=== PATIENT | female | born 1965 | race Caucasian/White ===

== ENCOUNTER 2019-09-14 15:57 | Emergency (ER) | payer SELFPAY ==
[2019-09-14] MEDS ORDERED: Sodium Chloride 0.9% 2.5 ML Syringe FLUSH PRN (16:09)
[2019-09-14] MEDS ORDERED: Sodium Chloride 0.9% 10 ML Syringe FLUSH PRN (16:09)
--- NOTE | 2019-09-14 16:17 | EDM.PDOC ---
ED HPI GENERAL MEDICAL PROBLEM - General Chief Complaint: Respiratory Problem Stated Complaint: CHEST HURTING Time Seen by Provider: 09/14/19 16:16 Source of Information: Reports: Patient History Limitations: Reports: No Limitations - History of Present Illness INITIAL COMMENTS - FREE TEXT/NARRATIVE: HISTORY AND PHYSICAL: History of present illness: Patient is a 54-year-old female presents to the ED with complaint of chest pain. She states she has been trying to quit smoking so she switched to vaping a few weeks ago. She states she developed left sided chest pain 2 weeks ago that resolved. In the last 3 days she has been having pain in her chest bilaterally but worse on the left side. She states it hurts when taking a deep breath and when moving a certain way or turning in bed. She denies fevers, chills, cough, shortness of breath, diaphoresis, nausea, vomiting, abdominal pain, diarrhea. She denies significant past medical history. She denies any pain at this time and only if she takes a deep breath. Review of systems: As per history of present illness and below otherwise all systems reviewed and negative. Past medical history: As per history of present illness and as reviewed below otherwise noncontributory. Surgical history: As per history of present illness and as reviewed below otherwise noncontributory. Social history: No reported history of drug or alcohol abuse. Family history: As per history of present illness and as reviewed below otherwise noncontributory. Physical exam: General: Patient sitting comfortably in no acute distress and nontoxic appearing. Speaking full sentences without breathlessness. HEENT: Atraumatic, normocephalic, pupils reactive, negative for conjunctival pallor or scleral icterus, mucous membranes moist, throat clear, neck supple, nontender, trachea midline. No meningeal signs. Lungs: Clear to auscultation, breath sounds equal bilaterally, tender to palpation along the sternum and sternocostal joints bilaterally. Heart: S1S2, regular, negative for clicks, rubs, or overt murmur. Abdomen: Soft, nondistended, nontender. Negative for masses or hepatosplenomegaly. Negative for costovertebral tenderness. No rigidity, rebound , guarding. Pelvis: Stable nontender. Genitourinary: Deferred. Rectal: Deferred. Extremities: Atraumatic, negative for cords or calf pain. Neurovascular unremarkable. Neuro: Awake, alert, oriented. Cranial nerves II through XII unremarkable. Cerebellum unremarkable. Motor and sensory unremarkable throughout. Exam nonfocal. Notes: Patient was offered admission for chest pain r/o ACS. She declines at this time and understands my concerns and risks. Diagnostics: CBC, CMP, Troponin, EKG, CXR Therapeutics: none Prescriptions: Impression: Atypical chest pain Plan: Take NSAIDs as instructed Follow up with primary care provider Return to ED as needed as discussed Definitive disposition and diagnosis as appropriate pending reevaluation and review of above. Chest Pain Score (Numeric/FACES): 6 - Related Data Allergies Allergy/AdvReac Type Severity Reaction Status Date / Time No Known Allergies Allergy Verified 09/14/19 16:18 Home Meds: Home Meds . [No Known Home Meds] 09/14/19 [History] ED ROS GENERAL - Review of Systems Review Of Systems: ROS reveals no pertinent complaints other than HPI. ED EXAM, GENERAL - Physical Exam Exam: See Below (see dictation) Course - Vital Signs Last Recorded V/S: Last Vital Signs Temp 97.0 F 09/14/19 16:15 Pulse 69 09/14/19 16:15 Resp 16 09/14/19 16:15 BP 136/73 09/14/19 16:15 Pulse Ox 98 09/14/19 16:15 - Orders/Labs/Meds Orders: Active Orders 24 hr Category Date Time Status Cardiac Monitoring [RC] . DIRECTED Care 09/14/19 16:09 Active EKG Documentation Completion [RC] STAT Care 09/14/19 16:09 Active Sodium Chloride 0.9% [Saline Flush] Med 09/14/19 16:09 Active 10 ml FLUSH ASDIRECTED PRN Sodium Chloride 0.9% [Saline Flush] Med 09/14/19 16:09 Active 2.5 ml FLUSH ASDIRECTED PRN Saline Lock Insert [OM.PC] Stat Oth 09/14/19 16:09 Ordered Medication Orders Sodium Chloride (Saline Flush) 10 ml FLUSH ASDIRECTED PRN PRN Reason: Keep Vein Open Sodium Chloride (Saline Flush) 2.5 ml FLUSH ASDIRECTED PRN PRN Reason: Keep Vein Open Labs: Laboratory Tests 09/14/19 09/14/19 09/14/19 Range/Units 16:32 16:32 16:32 WBC 7.40 (4.0-11.0) K/uL RBC 4.14 L (4.30-5.90) M/uL Hgb 12.2 (12.0-16.0) g/dL Hct 37.4 (36.0-46.0) % MCV 90.3 (80.0-98.0) fL MCH 29.5 (27.0-32.0) pg MCHC 32.6 (31.0-37.0) g/dL RDW Std Deviation 45.5 (28.0-62.0) fl RDW Coeff of Mikala 14 (11.0-15.0) % Plt Count 282 (150-400) K/uL MPV 9.60 (7.40-12.00) fL Neut % (Auto) 57.5 (48.0-80.0) % Lymph % (Auto) 33.8 (16.0-40.0) % [place] % (Auto) 6.1 (0.0-15.0) % Eos % (Auto) 2.2 (0.0-7.0) % Baso % (Auto) 0.4 (0.0-1.5) % Neut # (Auto) 4.3 (1.4-5.7) K/uL Lymph # (Auto) 2.5 H (0.6-2.4) K/uL [place] # (Auto) 0.5 (0.0-0.8) K/uL Eos # (Auto) 0.2 (0.0-0.7) K/uL Baso # (Auto) 0.0 (0.0-0.1) K/uL Nucleated RBC % 0.0 /100WBC Nucleated RBCs # 0 K/uL INR 0.96 Sodium 140 (136-145) mmol/L Potassium 4.1 (3.5-5.1) mmol/L Chloride 104 (98-107) mmol/L Carbon Dioxide 27.9 (21.0-32.0) mmol/L BUN 10 (7.0-18.0) mg/dL Creatinine 0.8 (0.6-1.0) mg/dL Est Cr Clr Drug Dosing 76.57 mL/min Estimated GFR (MDRD) > 60.0 ml/min Glucose 98 (74-106) mg/dL Calcium 9.0 (8.5-10.1) mg/dL Total Bilirubin 0.3 (0.2-1.0) mg/dL AST 15 (15-37) IU/L ALT 17 (14-63) IU/L Alkaline Phosphatase 55 (46-116) U/L Troponin I < 0.050 (0.000-0.056) ng/mL Total Protein 7.8 (6.4-8.2) g/dL Albumin 4.1 (3.4-5.0) g/dL Globulin 3.7 (2.6-4.0) g/dL Albumin/Globulin Ratio 1.1 (0.9-1.6) Meds: Medications Generic Name Dose Route Start Last Admin Trade Name Freq PRN Reason Stop Dose Admin Sodium Chloride 10 ml 09/14/19 16:09 Saline Flush FLUSH ASDIRECTED PRN Keep Vein Open Sodium Chloride 2.5 ml 09/14/19 16:09 Saline Flush FLUSH ASDIRECTED PRN Keep Vein Open Departure - Departure Time of Disposition: 17:19 Disposition: Home, Self-Care 01 Condition: Good Clinical Impression: Atypical chest pain - Discharge Information Referrals: PCP,None [Primary Care Provider] - Forms: ED Department Discharge Additional Instructions: The following information is given to patients seen in the emergency department who are being discharged to home. This information is to outline your options for follow-up care. We provide all patients seen in our emergency department with a follow-up referral. The need for follow-up, as well as the timing and circumstances, are variable depending upon the specifics of your emergency department visit. If you don't have a primary care physician on staff, we will provide you with a referral. We always advise you to contact your personal physician following an emergency department visit to inform them of the circumstance of the visit and for follow-up with them and/or the need for any referrals to a consulting specialist. The emergency department will also refer you to a specialist when appropriate. This referral assures that you have the opportunity for follow-up care with a specialist. All of these measure are taken in an effort to provide you with optimal care, which includes your follow-up. Under all circumstances we always encourage you to contact your private physician who remains a resource for coordinating your care. When calling for follow-up care, please make the office aware that this follow-up is from your recent emergency room visit. If for any reason you are refused follow-up, please contact the [facility] Emergency Department at and asked to speak to the emergency department charge nurse. [facility] [address] [place] [address] [address] Take NSAIDs as instructed Follow up with primary care provider Return to ED as needed as discussed - My Orders Last 24 Hours: My Active Orders 09/14/19 16:09 Cardiac Monitoring [RC] . DIRECTED EKG Documentation Completion [RC] STAT Sodium Chloride 0.9% [Saline Flush] 10 ml FLUSH ASDIRECTED PRN Sodium Chloride 0.9% [Saline Flush] 2.5 ml FLUSH ASDIRECTED PRN Saline Lock Insert [OM.PC] Stat - Assessment/Plan Last 24 Hours: My Active Orders 09/14/19 16:09 Cardiac Monitoring [RC] . DIRECTED EKG Documentation Completion [RC] STAT Sodium Chloride 0.9% [Saline Flush] 10 ml FLUSH ASDIRECTED PRN Sodium Chloride 0.9% [Saline Flush] 2.5 ml FLUSH ASDIRECTED PRN Saline Lock Insert [OM.PC] Stat
--- NOTE | 2019-09-14 17:03 | CR ---
Chest: Upright portable view of the chest was obtained. Comparison: No previous study. Heart size and mediastinum are normal. Lungs are clear. Mild scoliosis is noted within the spine. Impression: Nothing acute is seen on portable chest x-ray. Diagnostic code #2 MTDD
[2019-09-14 17:11] LABS: BLOOD UREA NITROGEN,BUN 10 mg/dL (7.0-18.0); CARBON DIOXIDE,CO2 27.9 mmol/L (21.0-32.0); CHLORIDE,CL 104 mmol/L (98-107); GLUCOSE RANDOM 98 mg/dL (74-106); POTASSIUM,K 4.1 mmol/L (3.5-5.1); SODIUM,NA 140 mmol/L (136-145)
== END 2019-09-14 17:30 | disposition home or self-care (01) ==
LOC: MW.ED 15:57
DX: R07.89 Other chest pain (principal); F17.290 Nicotine dependence, other tobacco product, uncomplicated
CPT/HCPCS: 36415; 71045; 71045-26; 80053; 84484; 85025; 85610; 93005; 99284; 99285-25

== ENCOUNTER 2024-10-26 08:56 | Day surgery (SDC) | payer SELFPAY ==
[~2024-10-26 08:56] MED LIST: Albuterol 0.083% 2.5 MG/3 ML Neb Soln NEB PRN; Dexamethasone 4 MG/ML 5 ML MDV ONE; HYDROmorphone 1 MG/ML Syringe IVPUSH PRN; Ketorolac 30 MG/ML SDV ONE; Lidocaine 2% 5 ML SDV ONE; Metoclopramide 10 MG/2 ML SDV IVPUSH PRN; Morphine 2 MG/ML SYRINGE IVPUSH PRN; Naloxone 0.4 MG/ML SDV IVPUSH PRN; Ondansetron 4 MG/2 ML SDV IVPUSH PRN; Ondansetron 4 MG/2 ML SDV ONE; Phenylephrine HCl In 0.9% NaCl 1 MG/10 ML Syringe IVPUSH PRN; Propofol 200 MG/20 ML SDV ONE; fentaNYL 100 MCG/2 ML SDV ONE; fentaNYL 50 MCG/ML SDV IVPUSH PRN; propofoL 500 MG/50 ML 50 ML ONE
[2024-10-26] MEDS: Lactated Ringers 1,000 ML IV SCH (09:20)
[2024-10-26] MEDS: Scopalamine 1mg/3day Transdermal Patch TOP ONE (09:38)
[2024-10-26] MEDS ORDERED: Metoclopramide 10 MG/2 ML SDV ONE (09:55)
== END 2024-10-26 11:25 | disposition home or self-care (01) ==
LOC: MW.SDS 08:56
PROVIDERS: ATTEND Obstetrics & Gynecology
DX: N84.0 Polyp of corpus uteri (principal); E03.9 Hypothyroidism, unspecified; Z79.899 Other long term (current) drug therapy; Z79.890 Hormone replacement therapy; Z87.891 Personal history of nicotine dependence
CPT/HCPCS: 58558; A9270; C1729; J0131; J1100; J1885; J2405; J2704; J2765; J3010; J7120; J3490

== ENCOUNTER 2025-08-25 10:11 | Day surgery (SDC) | payer OTHER ==
[2025-08-25 10:45] LABS: BASOPHILS ABSOLUTE AUTO 0.04 K/uL (0.00-0.20); BASOPHILS PERCENT AUTO 0.2 % (0.0-1.0); EOSINOPHILS ABSOLUTE AUTO 0.15 K/uL (0.00-0.45); EOSINOPHILS PERCENT AUTO 0.9 % (0.0-6.0); IMMATURE GRAN ABSOLUTE AUTO 0.05 K/uL (0.00-0.05); IMMATURE GRAN PERCENT AUTO 0.3 % (0.0-0.4); LYMPHOCYTES ABSOLUTE AUTO 1.13 K/uL (1.00-4.80); LYMPHOCYTES PERCENT AUTO 6.4 % (24.0-44.0); MEAN PLATELET VOLUME 8.9 fL (9.4-12.3); MONOCYTES ABSOLUTE AUTO 0.79 K/uL (0.00-0.80); MONOCYTES PERCENT AUTO 4.5 % (0.0-8.0); NEUTROPHILS ABSOLUTE AUTO 15.47 K/uL (1.80-7.70); NEUTROPHILS PERCENT AUTO 87.7 % (41.0-71.0); NRBC ABSOLUTE 0.00 K/uL (0.00-0.02); NRBC PERCENT 0.0 /100WBC (0.0-0.2); PLATELET COUNT,PLT 228 K/uL (150-400); RED BLOOD CELL COUNT 4.34 M/uL (4.10-5.30); WHITE BLOOD CELL COUNT,WBC 17.63 K/uL (3.9-11.3)
[2025-08-25 10:51] LABS: GLUCOSE,URINE NEGATIVE (NEGATIVE); OCCULT BLOOD,URINE NEGATIVE (NEGATIVE)
[2025-08-25 10:57] LABS: APPEARANCE,URINE HAZY
[2025-08-25] MEDS: Iopamidol 755 MG/ML 500 ML Multipack Bottle IVPUSH STA (11:12)
[2025-08-25 11:21] LABS: A/G RATIO 1.1 (0.9-1.6); ALANINE AMINOTRANSFERASE,ALT 28.0 IU/L (14-63); ASPARTATE AMNIOTRANSFERASE,AST 25.0 IU/L (15-37); BILIRUBIN TOTAL 0.4 mg/dL (0.2-1.0); BLOOD UREA NITROGEN,BUN 11.0 mg/dL (7.0-18.0); CARBON DIOXIDE,CO2 29.3 mmol/L (21.0-32.0); CHLORIDE,CL 101.0 mmol/L (98-107); CREATININE 0.8 mg/dL (0.6-1.0); EST CRCL DRUG DOSING (CG) 71.76 mL/min; GLUCOSE RANDOM 117.0 mg/dL (74-106); POTASSIUM,K 3.4 mmol/L (3.5-5.1); PROTEIN TOTAL,TP 7.3 g/dL (6.4-8.2); SODIUM,NA 141.0 mmol/L (136-145)
[2025-08-25 11:22] LABS: ESTIMATED GFR 85.0 mL/min (>60)
[2025-08-25] MEDS: Ondansetron 4 MG/2 ML SDV IVPUSH ONE (11:48)
[2025-08-25] MEDS ORDERED: Naloxone 0.4 MG/ML SDV IVPUSH PRN (13:22)
[2025-08-25] MEDS ORDERED: Albuterol 0.083% 2.5 MG/3 ML Neb Soln NEB PRN (13:22)
[2025-08-25] MEDS ORDERED: Ondansetron 4 MG/2 ML SDV IVPUSH PRN (13:22)
[2025-08-25] MEDS ORDERED: fentaNYL 50 MCG/ML SDV IVPUSH PRN (13:22)
[2025-08-25] MEDS ORDERED: fentaNYL 100 MCG/2 ML SDV ONE (13:31)
[2025-08-25] MEDS ORDERED: Propofol 200 MG/20 ML SDV ONE (13:31)
[2025-08-25] MEDS ORDERED: Midazolam 1 MG/ML 2 ML SDV ONE (13:32)
[2025-08-25] MEDS ORDERED: Ropivacaine 0.5% 5 MG/ML 30 ML SDV ONE (13:34)
[2025-08-25] MEDS ORDERED: dexmedeTOMIDine HCl 200 MCG/2 ML SDV ONE (13:35)
[2025-08-25] MEDS ORDERED: Lidocaine 2% 11 ML Jelly Filled Syringe ONE (14:18)
[2025-08-25] MEDS ORDERED: propofoL 500 MG/50 ML 50 ML ONE (14:43)
[2025-08-25] MEDS ORDERED: Ketorolac 30 MG/ML SDV ONE (14:47)
[2025-08-25] MEDS ORDERED: Ondansetron 4 MG/2 ML SDV ONE ×2 (14:47→14:50)
[2025-08-25] MEDS ORDERED: Esmolol 100 MG/10 ML SDV ONE (14:52)
== END 2025-08-25 19:08 | disposition home or self-care (01) ==
LOC: MW.ED 10:11 → MW.SDS 12:29 → MW.MS 12:29 → MW.SDS 19:08
PROVIDERS: ATTEND Surgery
DX: K35.30 Acute appendicitis with localized peritonitis, without perforation or gangrene (principal); K21.9 Gastro-esophageal reflux disease without esophagitis; E03.9 Hypothyroidism, unspecified; F32.A Depression, unspecified; Z79.899 Other long term (current) drug therapy
CPT/HCPCS: 36415; 44970; 74177; 80053; 81003; 83690; 85025; 96365; 96375; 99285; A9270; J0665; J1171; J1805; J2003; J2250; J2270; J2405; J2543; J2704; J2795; J3010; J7030; Q9967; 00840; 64488; J1885; J3490